=== PATIENT | male | born 1970 | race African-American/Black ===

== ENCOUNTER 2018-08-05 06:35 | Emergency (ER) | payer BC ==
--- NOTE | 2018-08-05 07:27 | PDOC ---
History of Present Illness - General Chief Complaint: Pain Stated Complaint: PAIN IN GROIN AREA - History of Present Illness Initial Comments: The pt is a 47M w/ no reported PMH who presents for evaluation of concern for STI. He reports several days of dysuria and whiteish penile discharge. He denies fevers/chills, rash, hematuria, testicular pain/swelling, or history of STI. He reports being monogamous with his partner and using condoms. PMH: Denies PSH: Denies Allergies: PCN Meds: Denies SH: Denies x3 08/05/18 07:50 Past History - Past Medical History Allergies/Adverse Reactions: Allergies Allergy/AdvReac Type Severity Reaction Status Date / Time Penicillins Allergy Verified 08/05/18 07:31 Home Medications: Ambulatory Orders Doxycycline Hyclate 100 mg PO BID 7 Days #13 tablet 08/05/18 Sulfamethoxazole/Trimethoprim [Bactrim Ds -] 1 tab PO BID 3 Days #5 tablet 08/05 Review of Systems - Review of Systems Able to Perform ROS?: Yes Comments:: GENERAL/CONSTITUTIONAL: No fever or chills HEAD, EYES, EARS, NOSE AND THROAT: No change in vision. No ear pain or discharge. No sore throat CARDIOVASCULAR: No chest pain or shortness of breath RESPIRATORY: Denies cough, hemoptysis GASTROINTESTINAL: No nausea, vomiting, diarrhea or constipation MUSCULOSKELETAL: No joint or muscle swelling or pain. No neck or back pain SKIN: No rash NEUROLOGIC: No headache, vertigo, loss of consciousness, or change in strength/ sensation ENDOCRINE: No increased thirst. No abnormal weight change HEMATOLOGIC/LYMPHATIC: No anemia, easy bleeding, or history of blood clots ALLERGIC/IMMUNOLOGIC: No hives or skin allergy 08/05/18 07:26 Is the patient limited Thai proficient: No *Physical Exam - Vital Signs Vital Signs Temp Pulse Resp BP Pulse Ox 97.8 F 72 16 150/97 100 08/05/18 07:00 08/05/18 07:00 08/05/18 07:00 08/05/18 07:00 08/05/18 07:00 08/05/18 07:52 - Physical Exam Comments: GENERAL: Awake, alert, and oriented to person/place/time, in no acute distress HEAD: No signs of trauma, normocephalic, atraumatic EYES: PERRLA, EOMI, sclera anicteric, conjunctiva clear ENT: Hearing grossly normal, nares patent, oropharynx clear without exudates. Moist mucosa LUNGS: No distress, speaks in full sentences, clear to auscultation bilaterally HEART: Regular rate and rhythm, normal S1 and S2, no murmurs appreciated, peripheral pulses normal and equal bilaterally ABDOMEN: Soft, nontender, normoactive bowel sounds. No guarding, no rebound : Circumcised; No penile discharge, No testicular pain/erythema/swelling; b/l inguinal LAD; no lesions seen EXTREMITIES: Normal inspection, Normal range of motion, no edema. No clubbing or cyanosis NEUROLOGICAL: Cranial nerves II through XII grossly intact. Normal speech, normal gait, no focal sensorimotor deficits SKIN: Warm, Dry 08/05/18 07:27 Medical Decision Making - Medical Decision Making The pt is a 47M w/ no reported PMH who presents for evaluation of dysuria and penile discharge expressing concern for STI. Ddx includes UTI, STI, consider pyelo Will send UA, GC, UCx Will treat presumptively Pt counseled that partner will need to be treated 08/05/18 07:53 UA w/ evidence of UTI Rx for Doxycycline sent to pt's pharmacy as pt is allergic to PCN Rx for Bactrim for UTI 08/05/18 08:44 Plan for D/C w/ PCP f/u Discharge instructions and return precautions given Pt in agreement and verbalized understanding Dispo: home 08/05/18 09:18 *DC/Admit/Observation/Transfer Diagnosis at time of Disposition: Dysuria, Penile discharge - Discharge Dispostion Disposition: HOME Condition at time of disposition: Stable Decision to Admit order: No - Prescriptions Prescriptions: Doxycycline Hyclate 100 mg PO BID 7 Days #13 tablet Sulfamethoxazole/Trimethoprim [Bactrim Ds -] 1 tab PO BID 3 Days #5 tablet - Referrals Referrals: [facility] [place] [Provider Group] - Patient Instructions Printed Discharge Instructions: Facts About Sexually Transmitted Infections Additional Instructions: You were seen in the Emergency Department for evaluation of dysuria and discharge. You were presumptively treated for a sexually transmitted infection. A prescription for Doxycycline and Bactrim was sent to the pharmacy that you specified, take as directed. Review the handout provided at discharge. Your sexual partner(s) will need to be evaluated and treated as well. Follow up with your primary care physician or the referral provided within a week. Return to the Emergency Department if you develop fevers/chills, chest pain, trouble breathing, worsening symptoms, testicular pain/swelling, rash, or any new/ concerning symptoms. - Post Discharge Activity
[2018-08-05 07:33] VITALS: BMI 25.8
[2018-08-05] MEDS ORDERED: AZITHROMYCIN 250 MG TABLET PO ONE (07:35)
[2018-08-05] MEDS ORDERED: DOXYCYCLINE HYCLATE 100 MG CAPSULE PO ONE ×2 (07:36→07:48)
[2018-08-05] MEDS ORDERED: AZITHROMYCIN 250 MG TABLET ONE (07:48)
--- NOTE | 2018-08-05 08:09 | PDOC ---
Attending Attestation - Resident Resident Name: Benito Zavala - ED Attending Attestation I have performed the following: I have examined & evaluated the patient, The case was reviewed & discussed with the resident, I agree w/resident's findings & plan, Exceptions are as noted - HPI HPI: 08/05/18 08:05 47yo male with dysuria and penile discharge. Pt concerned about STI exposure. No rashes, no lesions. Pt denies f/c. No new sexual partners. Pt denies all other complaints. - Physicial Exam PE: 08/05/18 08:06 Gen: aaox3, nad heart: +s1s2 reg lungs: cta b/l abd: soft, nt/nd +bs ext: no c/c/e : circumcised, no rashes, no lesions, no discharge from penis, no ulcerations , groin lymphadenopathy, no testicular ttp - Medical Decision Making 08/05/18 08:08 a/p: 47yo with dysuria and penile discharge -will send ua and gc/chl -will prophylactically medicate for gc/chl -discussed that the patients partner needs to be tested and treated in order to prevent spread of STI -discussed that cultures will not come back -will monitor and reassess 08/05/18 08:55 pt with UTI will treat with bactrim will dc with doxy and bactrim for gc/chl and uti pt stable for dc to home
[2018-08-05 08:43] LABS: EPI CELLS 0.5 /HPF (0-5/HPF); HYALINE CASTS 9 /lpf (0-8); URINE APPEARANCE CLEAR; URINE BACTERIA 19.5 /hpf (NEGATIVE); URINE BILIRUBIN NEGATIVE (NEGATIVE); URINE COLOR YELLOW; URINE GLUCOSE (UA) NEGATIVE (NEGATIVE); URINE KETONE NEGATIVE (NEGATIVE); URINE LEUK ESTERASE 1+ (NEGATIVE); URINE NITRITE NEGATIVE (NEGATIVE); URINE PROTEIN NEGATIVE (NEGATIVE); URINE RBC 2 /hpf (0-4); URINE WBC 27 /hpf (0-5)
[2018-08-05] MEDS ORDERED: SULFAMETHOXAZOLE/TRIMETHOPRIM 800MG/160MG D.S. TABLET PO ONE (08:54)
[2018-08-05] MEDS ORDERED: SULFAMETHOXAZOLE/TRIMETHOPRIM 800MG/160MG D.S. TABLET ONE (08:56)
[2018-08-05 09:21] VITALS: BP 142/78; PULSE 76; TEMP 98.2
== END 2018-08-05 08:58 | disposition home or self-care (01) ==
LOC: JER 06:35
DX: N39.0 Urinary tract infection, site not specified (principal); R36.9 Urethral discharge, unspecified
CPT/HCPCS: 36415; 81003; 87086; 87491; 87591; 99281-25